=== PATIENT | female | born 1980 | race Caucasian/White ===

== ENCOUNTER 2024-10-19 09:41 | Emergency (ER) | payer OTHER ==
[2024-10-19 09:48] VITALS: BP 130/79; PULSE 71; RESP 20; TEMP 98.6; BMI 28.2
[2024-10-19] MEDS ORDERED: LIDOCAINE 4% PATCH TP ONE (10:45)
[2024-10-19] MEDS ORDERED: KETOROLAC TROMETHAMINE 30 MG/1 ML VIAL ONE (10:45)
[2024-10-19] MEDS ORDERED: ACETAMINOPHEN 500 MG TABLET (FP) ONE ×2 (10:45→10:46)
[2024-10-19] MEDS: LIDOCAINE 5% TOPICAL PATCH TP ONE (10:53)
[2024-10-19] MEDS: KETOROLAC TROMETHAMINE 30 MG/1 ML VIAL IM ONE (10:53)
[2024-10-19] MEDS: ACETAMINOPHEN 500 MG TABLET (FP) PO ONE (10:53)
[2024-10-19] MEDS ORDERED: LIDOCAINE PATCH REMOVAL MC ONE (22:00)
== END 2024-10-19 12:26 | disposition home or self-care (01) ==
LOC: JERFT 09:41
PROC: 3E0233Z Introduction of Anti-inflammatory into Muscle, Percutaneous Approach (ICD-10-PCS; principal; 2024-10-19)
DX: M47.816 Spondylosis without myelopathy or radiculopathy, lumbar region (principal); M25.552 Pain in left hip; M54.50 Low back pain, unspecified
CPT/HCPCS: 72100-TC-FY; 73521-TC-FY; 99284-25